=== PATIENT | male | born 1975 | race Caucasian/White ===

== ENCOUNTER 2017-06-23 20:27 | Inpatient (IN) | payer BC ==
[~2017-06-23] VITALS: Ht 180.3 cm; Wt 94.0 kg
[~2017-06-23 20:27] MED LIST: NOHOMEMEDS
[2017-06-23 20:55] LABS: HEMATOCRIT 44.4 % (38.0-50.0); HEMOGLOBIN 15.8 G/DL (12.5-16.6); MCH 32.7 PG (29.0-34.0); MCHC 35.6 G/DL (30.0-36.0); MCV 91.9 FL (86-99); PLATELET COUNT 140 K/uL (156-360); RBC DIS.WIDTH-CV 11.7 % (11.8-14.6); RBC DIS.WIDTH-SD 39.3 % (39-53); RED BLOOD COUNT 4.83 M/uL (4.00-5.50); WHITE BLOOD COUNT 6.6 K/uL (4.1-10.2)
[2017-06-23 21:03] LABS: CHLORIDE 101 mEq/L (99-109); POTASSIUM 3.3 mEq/L (3.7-5.4); SODIUM 136 mEq/L (136-147)
[2017-06-23 21:05] LABS: GLUCOSE 124 mg/dL (70-99)
[2017-06-23 21:09] LABS: CREATININE 0.9 mg/dL (0.6-1.3); GFR ESTIMATE (CALCULATED) > 59 mL/min/ (58.99-99999)
[2017-06-23 21:10] LABS: UREA NITROGEN (BUN) 11 mg/dL (9-23)
[2017-06-23 21:12] LABS: MAGNESIUM 2.1 mg/dL (1.3-2.7)
[2017-06-23 21:15] LABS: TROP-I INTERPRETATION NEGATIVE; TROPONIN-I 0.02 ng/mL (0.0-0.30)
[2017-06-23 22:07] LABS: SERUM ETHYL ALCOHOL < 10 mg/dL
[2017-06-23 23:29] LABS: AMPHETAMINE NEGATIVE (500 ng/mL); BARBITURATES NEGATIVE (200 ng/mL); BENZODIAZEPINES NEGATIVE (150 ng/mL); BUPRENORPHINE NEGATIVE (10 ng/mL); COCAINE NEGATIVE (150 ng/mL); METHADONE NEGATIVE (200 ng/mL); METHAMPHETAMINE NEGATIVE (500 ng/mL); OPIATES (MORPHINE) NEGATIVE (100 ng/mL); OXYCODONE NEGATIVE (100 ng/mL); PHENCYCLIDINE NEGATIVE (25 ng/mL); PROPOXYPHENE NEGATIVE (300 ng/mL); THC CANNABINOIDS NEGATIVE (50 ng/mL); TRICYCLIC ANTIDEPRESSANTS NEGATIVE (300 ng/mL)
[2017-06-24 06:38] LABS: BASOPHIL (%) 0.2 % (0-1); EOSINOPHIL (%) 1.1 % (0-5); EOSINOPHIL COUNT 0.1 K/uL (0-0.3); HEMATOCRIT 40.4 % (38.0-50.0); HEMOGLOBIN 13.9 G/DL (12.5-16.6); IMMATURE GRANULOCYTE (%) 0.2 % (0.0-0.7); LYMPHOCYTE (%) 23.7 % (15-42); LYMPHOCYTE COUNT 1.3 K/uL (1.0-2.8); MCH 31.8 PG (29.0-34.0); MCHC 34.4 G/DL (30.0-36.0); MCV 92.4 FL (86-99); MONOCYTE (%) 10.8 % (3-12); MONOCYTE COUNT 0.6 K/uL (0-0.8); NEUTROPHIL COUNT 3.5 K/uL (1.8-6.4); PLATELET COUNT 128 K/uL (156-360); RBC DIS.WIDTH-CV 11.9 % (11.8-14.6); RBC DIS.WIDTH-SD 40.7 % (39-53); RED BLOOD COUNT 4.37 M/uL (4.00-5.50); WHITE BLOOD COUNT 5.5 K/uL (4.1-10.2)
[2017-06-24 07:11] LABS: ALBUMIN 3.3 G/DL (3.2-4.8); ALKALINE PHOSPHATASE 31 IU/L (3-129); ALT (GPT) 23 IU/L (3-49); AST (GOT) 22 IU/L (2-34); CHLORIDE 109 MEQ/L (99-109); CREATININE 0.9 MG/DL (0.6-1.3); GFR ESTIMATE (CALCULATED) > 59 mL/min/ (58.99-99999); GLUCOSE 117 mg/dL (70-99); POTASSIUM 3.8 MEQ/L (3.7-5.4); SODIUM 139 MEQ/L (136-147); TOTAL BILIRUBIN 0.3 MG/DL (0.0-1.0); TOTAL PROTEIN 5.4 G/DL (6.4-8.3); UREA NITROGEN (BUN) 8 mg/dL (9-23)
[2017-06-24 07:12] LABS: TROP-I INTERPRETATION NEGATIVE; TROPONIN-I 0.03 ng/mL (0.0-0.30)
[2017-06-24 11:33] VITALS: BP 117/61
[2017-06-24 12:21] LABS: TROP-I INTERPRETATION NEGATIVE; TROPONIN-I 0.02 ng/mL (0.0-0.30)
[2017-06-24 16:25] VITALS: BP 115/75
[2017-06-24 18:18] VITALS: BP 120/72
[2017-06-24 19:00] VITALS: BP 123/76
[2017-06-25 00:03] VITALS: BP 122/68
[2017-06-25 04:21] VITALS: BP 120/64
[2017-06-25 05:20] LABS: HEMATOCRIT 42.1 % (38.0-50.0); HEMOGLOBIN 14.4 G/DL (12.5-16.6); MCH 32.1 PG (29.0-34.0); MCHC 34.2 G/DL (30.0-36.0); MCV 93.8 FL (86-99); PLATELET COUNT 128 K/uL (156-360); RBC DIS.WIDTH-CV 11.9 % (11.8-14.6); RBC DIS.WIDTH-SD 41.2 % (39-53); RED BLOOD COUNT 4.49 M/uL (4.00-5.50); WHITE BLOOD COUNT 5.7 K/uL (4.1-10.2)
[2017-06-25 06:41] LABS: INTER. NORMALIZED RATIO 1.1
[2017-06-25 07:38] LABS: CHLORIDE 105 MEQ/L (99-109); GFR ESTIMATE (CALCULATED) > 59 mL/min/ (58.99-99999); SODIUM 142 MEQ/L (136-147); UREA NITROGEN (BUN) 9 mg/dL (9-23)
[2017-06-25 07:41] LABS: GLUCOSE 85 mg/dL (70-99)
[2017-06-25 08:12] VITALS: BP 121/79
[2017-06-25 12:16] VITALS: BP 121/80
[2017-06-25 15:58] VITALS: BP 116/74
[2017-06-25] MEDS ORDERED: CARDIZEM60 MG PO (16:19)
[2017-06-25] MEDS ORDERED: XARELTO20 MG PO (16:19)
== END 2017-06-25 17:42 | disposition home or self-care (01) | DRG 310 ==
LOC: EME 20:27 → 4EAST 22:20 → EDOF 22:20 → ENRESERV 22:22 → 4EAST 06-24 11:00
PROVIDERS: Emergency Medicine; Hospitalist; Internal Medicine; Student in an Organized Health Care Education/Training Program
PROC: 5A12012 Performance of Cardiac Output, Single, Manual (ICD-10-PCS; principal; 2017-06-23)
PROC: 5A2204Z Restoration of Cardiac Rhythm, Single (ICD-10-PCS; principal; 2017-06-23)
DX: I48.0 Paroxysmal atrial fibrillation (principal); R55 Syncope and collapse; R00.1 Bradycardia, unspecified; A08.4 Viral intestinal infection, unspecified
CPT/HCPCS: 71045; 71275; 80047; 80048; 80053; 83036; 83735; 84484; 85025; 85027; 85610; 87502; 93005; 99281; 99285; G0480; J1650; J1742; J2405; J3475; J7030; J7050